=== PATIENT | male | born 1960 | race Caucasian/White ===

== ENCOUNTER 2017-10-10 11:19 | Day surgery (SDC) | payer BC ==
[~2017-10-10] VITALS: Ht 185.4 cm; Wt 86.2 kg
[~2017-10-10 11:19] MED LIST: DAILY MULTIPLE1 EACH PO; FISH OIL 1,0001 EA10 PO; LISINOPRIL10 MG PO; LO-DOSE ASPIRIN81 M2 PO; VITAMIN D31000 UNI2 PO; VITAMIN E400 UNIT PO; WELLBUTRIN XL150 MG PO
[2017-10-10 12:52] VITALS: BP 104/70
[2017-10-10] MEDS ORDERED: HYDROCODON-ACE1 EAC7 PO (15:04)
[2017-10-10 15:45] VITALS: BP 115/68
[2017-10-10 17:15] VITALS: BP 100/58; BP 106/63
== END 2017-10-10 17:10 | disposition home or self-care (01) ==
LOC: SDC
DX: K80.10 Calculus of gallbladder with chronic cholecystitis without obstruction (principal); K76.0 Fatty (change of) liver, not elsewhere classified; K66.0 Peritoneal adhesions (postprocedural) (postinfection); I10 Essential (primary) hypertension; F32.9 Major depressive disorder, single episode, unspecified; Z82.49 Family history of ischemic heart disease and other diseases of the circulatory system
CPT/HCPCS: 88304; J1100; J1170; J2250; J2405; J2710; J3010; J3475; J7643; Q0175; S0074